=== PATIENT | female | born 1955 | race Caucasian/White ===

== ENCOUNTER 2024-07-03 09:31 | Outpatient (CLI) | payer MEDICARE ==
[2024-07-03] MEDS ORDERED: Iopamidol 300 61% 100 ML VIAL FS ONE (09:51)
== END 2024-07-03 09:32 | disposition home or self-care (01) ==
LOC: CSHCT 09:31
PROVIDERS: ATTEND Otolaryngology Plastic Surgery within the Head & Neck
DX: C02.9 Malignant neoplasm of tongue, unspecified (principal); M89.58 Osteolysis, other site; R59.0 Localized enlarged lymph nodes; E04.1 Nontoxic single thyroid nodule; K44.9 Diaphragmatic hernia without obstruction or gangrene; M47.814 Spondylosis without myelopathy or radiculopathy, thoracic region
CPT/HCPCS: 36415; 70492; 71270; 82565